=== PATIENT | male | born 1990 | race Caucasian/White ===

== ENCOUNTER 2025-03-01 11:43 | Emergency (ER) | payer MEDICAID ==
[~2025-03-01] VITALS: Ht 177.8 cm; Wt 108.0 kg
[2025-03-01 11:51] VITALS: O2SAT 100
[2025-03-01 11:55] VITALS: BP 124/82; PULSE 58; RESP 18; TEMP 36.8; O2SAT 99
[2025-03-01 13:19] LABS: CREATININE 0.7 mg/dL (0.6-1.3)
[2025-03-01 13:20] LABS: TROPONIN I HIGH SENSITIVITY 13 ng/L (3.0-53); UREA NITROGEN BLOOD 10 mg/dL (9-23)
[2025-03-01 13:21] LABS: ASPARTATE AMINOTRANSFERASE 13 IU/L (<34)
[2025-03-01 13:22] LABS: BILIRUBIN DIRECT 0.3 mg/dL (<=3.0); BILIRUBIN TOTAL 0.8 mg/dL (0.1-1.0); PROTEIN TOTAL 7.0 g/dL (6.0-8.3)
== END 2025-03-01 14:36 | disposition left against medical advice (07) ==
LOC: ER 11:43
DX: R07.89 Other chest pain (principal); Z79.899 Other long term (current) drug therapy
CPT/HCPCS: 36415; 71045; 80048; 80076; 83735; 84484; 93005; 99285